=== PATIENT | female | born 1940 | race Caucasian/White ===

== ENCOUNTER 2016-11-29 11:07 | Inpatient (IN) ==
--- NOTE | 2016-11-29 11:39 | Emergency Department Note ---
Arrival - Arrival Chief Complaint: Non-Specific Stated Complaint: low sodium/sent by Dr Shaikh ED Nursing Triage Note: Pt sent by Dr Shaikh's office for ?low sodium that was drawn yesterday. Pt c/o hurting all over and was placed onto a ?"Fluid" med last wk. Mode of Arrival: Ambulatory Limitations: No Limitations Source: Patient Time Seen by Provider: 11/29/16 11:35 - History of Present Illness HPI Narrative: This 76-year-old white female presents on referral from Dr. Plata's office for evaluation of abnormal sodium after being put on a diuretic by Dr. Shaikh for chronic tinnitus. The patient has had no improvement in the tinnitus but has had significant problems with muscle cramping and body aches since beginning this medication. Currently she is in no acute medical distress. Onset (ago): day(s) (Patient presents 2 days post onset of symptom) Allergies/Adverse Reactions: Allergies Allergy/AdvReac Type Severity Reaction Status Date / Time clindamycin Allergy Verified 07/02/16 14:20 meperidine [From Demerol] Allergy INJECTION Verified 07/02/16 14:20 SITE REACTION morphine Allergy Verified 07/02/16 14:20 codeine AdvReac Nausea Verified 07/02/16 14:20 Sulfa (Sulfonamide AdvReac RASH Verified 07/02/16 14:20 Antibiotics) Home Medications: Home Medications Medication Instructions Recorded Confirmed Type Amitriptyline HCl 50 mg PO BEDTIME 07/30/14 07/02/16 History ChlordiazePOX/CLIDINIUM 5-2.5 1 capsule PO ACHS 07/30/14 07/02/16 History [Librax] OXcarbazepine [Oxcarbazepine] 150 mg PO BEDTIME 07/30/14 07/02/16 History cloNIDine TAB [Catapres Tab] 0.1 mg PO BID 07/30/14 07/02/16 History Polyethylene Glycol Powder 17 gm PO BID 02/27/15 07/02/16 History [Miralax] Atorvastatin [Lipitor] 40 mg PO DAILY 07/02/16 07/02/16 History Saccharomyces Boulardii [Probiotic] 1 capsule PO DAILY 07/02/16 07/02/16 History methIMAzole [Methimazole] 10 mg PO QAM 07/02/16 07/02/16 History Cefuroxime Tab [Ceftin] 500 mg PO BID #22 tablet 07/05/16 Rx Ibandronate Sodium [Boniva] 150 mg PO Q30D #0 07/05/16 07/02/16 Rx Pantoprazole Tab [Protonix Tab] 40 mg PO BID #60 tablet 07/05/16 Rx Escitalopram [Lexapro] 20 mg PO QAM 11/29/16 History Methenamine Hippurate [Hiprex] 1 gm PO BID 11/29/16 History Triamterene/Hydrochlorothiazid 1 each PO DAILY 11/29/16 History [Triamterene-Hctz 37.5-25 mg Tb] amLODIPine [Norvasc] 10 mg PO QPM 11/29/16 History Review of System - Review of System 12 point system: reviewed and no additional remarkable complaints except as stated - Review of System Constitutional: Present: as per HPI Musculoskeletal: Present: as per HPI Medical,Surgical,& Family Hx - Medical History Cardio: History of: Cardiac Dysrhythmia, CAD, Hypertension Psychological: History of: Anxiety Disorders, Depression Neurology: No history of: Seizures HEENT: History of: Ear Problem (left ear deafness), Eye Problem Endocrine: History of: Thyroid Disorder No history of: Diabetes Mellitus (IDDM) Respiratory: History of: Asthma (mild per Dr. Pollard H&P), Respiratory Problems (Flu Vac Jan 2015; No Pneum Vac; Wheezing Sched for Bronch 02/28/15) Genitourinary: History of: Recurring Urinary Tract Infections Gastrointestinal: History of: Diverticulitis/ Diverticulosis, GERD, GI Problems (IBS) Musculoskeletal: History of: Osteoporosis Hematology: History of: Anemia No history of: Blood Transfusion Reaction (1958) Reproductive: History of: Breast Cancer (Rt Breast-Followed by Dr. Esquivel 2009, radiaton) Other: History of: Cancer (breast ca), Miscellaneous Medical Problems ( Aspiration of pills Dec 2014 in respiratory tract-For Bronch 02/28/15) No history of: Anesthesia Reactions - Surgical History Cardiac Surgeries: Sugical HX of: Cardiac Catheterization Comment Only: Cardiac Surgery (Dr. Acosta) HEENT Surgeries: Surgical HX of: Eye Surgery (Cataract Surgery Kvng) Abdominal Surgeries: Surgical HX of: Appendectomy (?Per Dr. Pollard H&P), Cholecystectomy, Colonoscopy, EGD Reproductive Surgeries: Surgical HX of;: Breast Surgery (Lumpectomy Rt Breast), Hysterectomy - Family History Family History: Reports;: Family Cancer, Family Diabetes, Family Heart Disease - Social History Smoking Status: Never smoker Exam Physical Examination: GENERAL: Well developed, well nourished elderly white female in no acute distress. HEENT: Normocephalic. No trauma. Moist mucous membranes. EOMI. PERRLA. ENT NML NECK: Supple. No adenopathy. CARDIAC: Regular. No murmurs. Heart rate 75 CHEST: Clear to auscultation. No respiratory distress. O2 sat 100% ABDOMEN: Soft. Nontender. Active bowel sounds. EXTREMITIES: No trauma. Normal ROM. No pedal edema. SKIN: No diaphoresis. No rash. NEURO: Alert. Oriented 3. Motor, sensory, vibratory intact no focal deficits. Vital Signs: Vital Signs Temperature 97.6 F 11/29/16 11:15 Pulse Rate 64 11/29/16 12:35 Respiratory Rate 18 11/29/16 12:35 Blood Pressure 129/71 11/29/16 12:35 O2 Sat by Pulse Oximetry 99 11/29/16 12:35 Course - Reevaluation(s) Reevaluation #1: Advised patient of need for hospitalization. - Consultations Consultation #1: Discussed with hospitalist service who will admit for further evaluation treatment. Results - Labs CBC & BMP: 11/29/16 12:40 11/29/16 12:40 Labs: I reviewed the laboratory and noted the low hematocrit as well as a low sodium. - Impressions EKG sinus rhythm at 65 with normal [place] interval and QRS duration. Normal ST segments. Normal EKG. Disposition Clinical Impression: Hyponatremia, Tenderness Case discussed with: patient Disposition: Still a Patient Condition: Stable Time of Disposition: 14:08
--- NOTE | 2016-11-29 12:52 | EKG Report ---
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
[2016-11-29 12:57] LABS: Basophils % 0.3 % (0.0-0.8); Eosinophils % 0.4 % (0.00-10.9); Hematocrit 32.3 VOL% (35.7-47.0); Hemoglobin 11.9 GM/DL (12.0-16.0); Immature Granulocytes % 0.4 %; Immature Granulocytes Absolute 0.03 #; Lymphocytes # 0.7 10*3/uL (1.4-4.0); Lymphocytes % 9.9 % (21.3-54.2); Mean Corpuscular HGB Conc 36.8 GM/DL (32-36); Mean Corpuscular Hemoglobin 32 PG (27-34); Mean Corpuscular Volume 85.7 FL (87-102); Mean Platelet Volume 10.1 FL (9.6-12.0); Monocytes # 0.6 10*3/uL (0.11-0.8); Monocytes % 7.9 % (1.7-12.7); Neutrophils # 5.9 10*3/uL (1.4-7.4); Neutrophils % 81.1 % (38.7-73.9); Platelet Count 207 T/CUMM (130-400); Red Blood Count 3.77 MC/CUMM (3.8-5.5); Red Cell Distribution Width 12.5 % (9.3-17.3); White Blood Count 7.2 T/CUMM (4-12)
[2016-11-29 13:24] LABS: Alanine Aminotransferase 24 U/L (13-56); Albumin 4.2 G/DL (3.4-5.0); Alkaline Phosphatase 94 U/L (45-117); Aspartate Amino Transferase 17 U/L (0-37); Bilirubin,Total < 0.39 MG/DL (0.2-1.0); Blood Urea Nitrogen 14 MG/DL (7-18); Calcium 9.5 MG/DL (8.5-10.1); Glucose 101 MG/DL (74-106); Osmolality,Calculated 251.5 MOS/KG (273-304); Potassium 4.9 MMOL/L (3.5-5.1); Sodium 125 MMOL/L (136-145); Total Protein 7.7 G/DL (6.4-8.3); Troponin I Only < 0.015 NG/ML (0.00-0.045)
--- NOTE | 2016-11-29 14:42 | Hospitalist History & Physical ---
<Eli Cameron - Last Filed: 11/29/16 14:30> Assessment and Plan - Time spent with patient Time spent with patient: Greater than 30 minutes (1) Hyponatremia Status: Acute Assessment and plan: 11/29/16 - Admit on monitored bed Check urine sodium will repeat a.m. labs Will discuss with Dr kulkarni for further recommendations with care. Current Visit: Yes History of Present Illness Chief complaint: low sodium, muscle cramps History of present illness: Ms. Greenfield is a 76 year old white female w/PMHx of CAD, hypertension, anxiety , depression, left eat deafness, thyroid dz, asthma, GERD, breast CA (radiation) , esophageal stricture (last dilatation June 2016) presented to the ED from Dr Shaikh's office for lab work results of low sodium. She reports muscle cramps in legs and neck with some tenderness. She denies chest pain, shortness of breath, fever, or chills. She reports that Dr Shaikh had placed her on a "fluid " pill related to c/o tinnitus last week on Friday and she had follow up lab work done yesterday, Dr Shaikh's office then called her today to go to the ED. IN ED: LAB Significant: SODIUM 125, troponin negative. EKG: per ED MD: sinus rhythm rate 65 with normal [place] interval ans QRS duration. Normal ST segments. PCP: Dr Paula Sr. Strategic Sourcing Manager: Dr Acosta GI: Dr Garrido After discussion with Dr Wiggins in the ED and Dr Kulkarni with Hospitalist Services, it was agreed to admit patient for further evaluation of low sodium and muscle cramping. Home medications to be reviewed and reconciliation to follow. Home Medications Medication Instructions Recorded Confirmed Type Amitriptyline HCl 50 mg PO BEDTIME 07/30/14 11/29/16 History ChlordiazePOX/CLIDINIUM 5-2.5 1 capsule PO ACHS 07/30/14 11/29/16 History [Librax] OXcarbazepine [Oxcarbazepine] 150 mg PO BEDTIME 07/30/14 11/29/16 History cloNIDine TAB [Catapres Tab] 0.1 mg PO BID@0800,2200 07/30/14 11/29/16 History Polyethylene Glycol Powder 17 gm PO BEDTIME 02/27/15 11/29/16 History [Miralax] Atorvastatin [Lipitor] 40 mg PO QAM 07/02/16 11/29/16 History Saccharomyces Boulardii [Probiotic] 1 capsule PO QAM 07/02/16 11/29/16 History Ibandronate Sodium [Boniva] 150 mg PO Q30D #0 07/05/16 11/29/16 Rx Pantoprazole Tab [Protonix Tab] 40 mg PO BID #60 tablet 07/05/16 11/29/16 Rx Escitalopram [Lexapro] 10 mg PO QAM 11/29/16 11/29/16 History Multivitamin [Multivitamins] 1 each PO QAM 11/29/16 11/29/16 History Naproxen Sodium [Naproxen Sodium 220 mg PO Q12H PRN 11/29/16 11/29/16 History Tab] amLODIPine [Norvasc] 5 mg PO QAM 11/29/16 11/29/16 History methIMAzole [Methimazole] 5 mg PO QAM 11/29/16 11/29/16 History Allergies Allergy/AdvReac Type Severity Reaction Status Date / Time clindamycin Allergy Verified 07/02/16 14:20 meperidine [From Demerol] Allergy INJECTION Verified 07/02/16 14:20 SITE REACTION morphine Allergy Verified 07/02/16 14:20 codeine AdvReac Nausea Verified 07/02/16 14:20 Sulfa (Sulfonamide AdvReac RASH Verified 07/02/16 14:20 Antibiotics) Medical,Surgical,& Family Hx - Medical History Cardio: History of: Cardiac Dysrhythmia, CAD, Hypertension Psychological: History of: Anxiety Disorders, Depression Neurology: No history of: Seizures HEENT: History of: Ear Problem (left ear deafness), Eye Problem Endocrine: History of: Thyroid Disorder No history of: Diabetes Mellitus (IDDM) Respiratory: History of: Asthma (mild per Dr. Pollard H&P), Respiratory Problems (Flu Vac Jan 2015; No Pneum Vac; Wheezing Sched for Bronch 02/28/15) Genitourinary: History of: Recurring Urinary Tract Infections Gastrointestinal: History of: Diverticulitis/ Diverticulosis, GERD, GI Problems (IBS) Musculoskeletal: History of: Osteoporosis Hematology: History of: Anemia No history of: Blood Transfusion Reaction (1958) Reproductive: History of: Breast Cancer (Rt Breast-Followed by Dr. Esquivel 2009, radiaton) Other: History of: Cancer (breast ca), Miscellaneous Medical Problems ( Aspiration of pills Dec 2014 in respiratory tract-For Bronch 02/28/15) No history of: Anesthesia Reactions - Surgical History Cardiac Surgeries: Sugical HX of: Cardiac Catheterization Comment Only: Cardiac Surgery (Dr. Acosta) HEENT Surgeries: Surgical HX of: Eye Surgery (Cataract Surgery Kvng) Abdominal Surgeries: Surgical HX of: Appendectomy (?Per Dr. Pollard H&P), Cholecystectomy, Colonoscopy, EGD Reproductive Surgeries: Surgical HX of;: Breast Surgery (Lumpectomy Rt Breast), Hysterectomy - Family History Family History: Reports;: Family Cancer, Family Diabetes, Family Heart Disease - Social History Smoking Status: Never smoker Frequency of Alcohol Use: None Type of Drug Use: None Marital Status: Single Lives With:: Alone Functional capacity: independent ambulation 12 point system: reviewed and no additional remarkable complaints except as stated - Constitutional Constitutional: Absent: chills, fatigue, fever(s), frequent falls - EENT Ears: Present: decreased hearing (left ear deafness) - Cardiovascular Cardiovascular: Absent: chest pain at rest, chest pain with activity, dyspnea, dyspnea on exertion - Respiratory Respiratory: Absent: dyspnea - Gastrointestinal Gastrointestinal: Absent: abdominal pain - Musculoskeletal Musculoskeletal: Present: muscle cramps, other (muscle tenderness) - Neurological Neurological: Absent: abnormal gait, abnormal speech, confusion, dizziness Exam - Constitutional Vitals: Period Temp Pulse Resp BP Sys/Morris Pulse Ox Last 24 Hr 97.6 F-97.6 F 64-75 14-20 126-137/62-71 99-100 General appearance: normal weight, no acute distress - Head Head exam: Present: normal inspection - Eye Eye exam: Present: EOMI Pupils: Present: HATTIE - Neck Neck exam: Present: normal inspection. Absent: thyromegaly - Respiratory Respiratory exam: Present: clear to auscultation bilaterally. Absent: stridor, wheezes - Cardiovascular Cardiovascular exam: Present: regular rate and rhythm - GI/Abdominal GI/Abdominal exam: Present: normal bowel sounds, soft. Absent: rebound - Extremities Exam Extremities exam: Present: normal inspection, full ROM, other (muscle/leg cramps with some tenderness in deep muscles). Absent: edema - Neurological Exam Neurological exam: Present: alert, oriented X3, CN II-XII intact - Psychiatric Psychiatric exam: Present: normal affect, normal mood. Absent: agitated, anxious - Skin Skin exam: Present: normal color, warm, dry Results - Labs CBC & BMP: 11/29/16 12:40 11/29/16 12:40 Lab Results: I have reviewed the past 24 hour labs - EKG EKG results: interpreted by JOJO <David Kulkarni - Last Filed: 11/29/16 15:13> Assessment and Plan (1) Hyponatremia Status: Acute Assessment and plan: Impression: 1. Hyponatremia. This is likely due to diuresis and urinary loss of sodium. However, she is on a couple of agents that could cause syndrome of inappropriate ADH. Will need to evaluate her hyponatremia further. Plan: Check urine and serum osmolality and urine sodium. Base management of hyponatremia on these values. Will need to correct slowly, as she is asymptomatic and therefore the hyponatremia is likely greater than 48 hours old. This note was completed using [employer] voice recognition software. There may be household refrigerator mechanic errors as a result. Current Visit: Yes History of Present Illness History of present illness: Ms. Greenfield is a 76 year old female The patient has a known history of hypertension, and has been on antihypertensives for a while. Over the past several years, she has had a gradual decrease in auditory acuity in the left ear. About a week ago, she had some left-sided tinnitus. She went to the ENT, and was started on an unknown diuretic. She had some lab work performed yesterday, and her sodium was noted to be 124. She was notified to come to the emergency room. She has not had any seizures. There has been no mental status change or any type of confusion. She was admitted here in June of this year with septic shock of unknown source. She is apparently done well since. She has a history of what sounds like hyperthyroidism of relatively new onset. 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 She is also on Lexapro for years. She sees cardiology for a "leaky valve," and also sees GI for what sounds like intermittent esophageal dilation. She does not have any history of kidney disease except for occasional urinary infections. Exam - Constitutional Vitals: Period Temp Pulse Resp BP Sys/Morris Pulse Ox Last 24 Hr 97.6 F-97.6 F 64-75 14-20 126-137/62-71 99-100 Vital signs are noted above. Heart is regular with no murmur or gallop. There is no carotid bruit. Chest is clear with no rales or wheezes. Abdomen is soft without any mass or tenderness. She is awake and alert. Mental status appears normal. Results - Labs CBC & BMP: 11/29/16 12:40 11/29/16 12:40
[2016-11-29] MEDS ORDERED: ChlordiazePOXIDE/CLIDINIUM 5-2.5 MG CAPSULE PO SCH (16:30)
[2016-11-29] MEDS: ENOXAPARIN 40 MG/0.4 ML SYRINGE SUBCUT SCH (17:18)
[2016-11-29] MEDS: SODIUM CHLORIDE 0.9% 1,000 ML IV SCH (17:32)
[2016-11-29 20:54] LABS: Calcium 8.9 MG/DL (8.5-10.1); Osmolality,Calculated 262.7 MOS/KG (273-304)
[2016-11-29] MEDS: AMITRIPTYLINE 50 MG TABLET PO SCH (21:08)
[2016-11-29] MEDS: PANTOPRAZOLE 40 MG TABLET PO SCH (21:08)
[2016-11-29] MEDS: OXcarbazepine 300 MG TABLET PO SCH (21:09)
[2016-11-29] MEDS: POLYETHYLENE GLYCOL POWDER 17 GM PACK PO SCH (21:09)
[2016-11-29] MEDS: cloNIDine 0.1 MG TABLET PO SCH (21:09)
[2016-11-29] MEDS: ChlordiazePOXIDE/CLIDINIUM 5-2.5 MG CAPSULE PO SCH (21:11)
[2016-11-30] MEDS: SODIUM CHLORIDE 0.9% 1,000 ML IV SCH ×3 (03:15→23:36)
[2016-11-30 06:12] LABS: Calcium 8.6 MG/DL (8.5-10.1); Osmolality,Calculated 262.5 MOS/KG (273-304); Potassium 4.6 MMOL/L (3.5-5.1)
[2016-11-30] MEDS: MULTIVITAMIN (CENTRUM) TABLET PO SCH (08:45)
[2016-11-30] MEDS: LACTOBACILLUS RHAMNOSUS GG CAPSULE PO SCH (08:45)
[2016-11-30] MEDS: amLODIPine 5 MG TABLET PO SCH (08:46)
[2016-11-30] MEDS: ATORVASTATIN 40 MG TABLET PO SCH (08:46)
[2016-11-30] MEDS: PANTOPRAZOLE 40 MG TABLET PO SCH ×2 (08:46→21:28)
[2016-11-30] MEDS: methIMAzole 5 MG TABLET PO SCH (08:46)
--- NOTE | 2016-11-30 08:47 | Hospitalist Progress Note ---
Assessment and Plan (1) Hyponatremia Status: Acute Assessment and plan: Her serum sodium is increased from 125 on admission to 132 today. We will continue intravenous sodium chloride 0.9% intravenous infusion. She should be ready for discharge tomorrow morning. Current Visit: Yes Hospitalist: Subjective Interval history: Patient was hospitalized here yesterday with hyponatremia. Her serum sodium on admission was 125. She was begun on treatment with intravenous sodium chloride 0.9% infusion. She is comfortable today with no specific complaints. Her serum sodium has increased to 132. Exam - Constitutional Vitals: Period Temp Pulse Resp BP Sys/Morris Pulse Ox Last 24 Hr 96.9 F-98.1 F 64-75 14-20 110-164/53-103 93-100 General appearance: no acute distress - Head Head exam: Present: normal inspection - Neck Neck exam: Present: normal inspection - Respiratory Respiratory exam: Present: clear to auscultation bilaterally - Cardiovascular Cardiovascular exam: Present: regular rate and rhythm - GI/Abdominal GI/Abdominal exam: Present: normal bowel sounds, soft, other (Nontender with no palpable masses or hepatosplenomegaly.) - Extremities Exam Extremities exam: Present: normal inspection - Neurological Exam Neurological exam: Present: alert, oriented X3 - Skin Skin exam: Present: normal color, warm, intact Results - Labs CBC & BMP: 11/29/16 12:40 11/30/16 05:03
[2016-11-30] MEDS: cloNIDine 0.1 MG TABLET PO SCH ×2 (08:50→21:27)
[2016-11-30] MEDS: ChlordiazePOXIDE/CLIDINIUM 5-2.5 MG CAPSULE PO SCH ×3 (08:50→21:29)
[2016-11-30] MEDS ORDERED: IBANDRONATE SODIUM 150 MG PO SCH (09:00)
[2016-11-30] MEDS ORDERED: NAPROXEN 250 MG TABLET PO PRN (09:00)
[2016-11-30] MEDS: ESCITALOPRAM 10 MG TABLET PO SCH (09:27)
[2016-11-30] MEDS: DOCUSATE SODIUM 100 MG CAPSULE PO SCH ×2 (14:09→21:27)
[2016-11-30] MEDS: ENOXAPARIN 40 MG/0.4 ML SYRINGE SUBCUT SCH (16:12)
[2016-11-30] MEDS: OXcarbazepine 300 MG TABLET PO SCH (21:27)
[2016-11-30] MEDS: AMITRIPTYLINE 50 MG TABLET PO SCH (21:28)
[2016-11-30] MEDS: POLYETHYLENE GLYCOL POWDER 17 GM PACK PO SCH (21:29)
[2016-12-01 05:13] LABS: Calcium 8.5 MG/DL (8.5-10.1); Osmolality,Calculated 273.7 MOS/KG (273-304); Potassium 4.4 MMOL/L (3.5-5.1)
[2016-12-01 07:42] VITALS: BP 123/63
[2016-12-01] MEDS: ChlordiazePOXIDE/CLIDINIUM 5-2.5 MG CAPSULE PO SCH (08:32)
[2016-12-01] MEDS: MULTIVITAMIN (CENTRUM) TABLET PO SCH (08:32)
[2016-12-01] MEDS: methIMAzole 5 MG TABLET PO SCH (08:32)
[2016-12-01] MEDS: PANTOPRAZOLE 40 MG TABLET PO SCH (08:33)
[2016-12-01] MEDS: LACTOBACILLUS RHAMNOSUS GG CAPSULE PO SCH (08:33)
[2016-12-01] MEDS: DOCUSATE SODIUM 100 MG CAPSULE PO SCH (08:33)
[2016-12-01] MEDS: amLODIPine 5 MG TABLET PO SCH (08:34)
[2016-12-01] MEDS: cloNIDine 0.1 MG TABLET PO SCH (08:34)
[2016-12-01] MEDS: ATORVASTATIN 40 MG TABLET PO SCH (08:34)
[2016-12-01] MEDS: ESCITALOPRAM 10 MG TABLET PO SCH (08:34)
--- NOTE | 2016-12-01 08:51 | Discharge Summary ---
Hospital Course - Hospital Course Hospital Course: Ms. Greenfield is a 76 year old white female w/PMHx of CAD, hypertension, anxiety , depression, left eat deafness, thyroid dz, asthma, GERD, breast CA (radiation) , esophageal stricture (last dilatation June 2016) presented to the ED from Dr Shaikh's office for lab work results of low sodium. She reports muscle cramps in legs and neck with some tenderness. She denies chest pain, shortness of breath, fever, or chills. She reports that Dr Shaikh had placed her on a "fluid " pill related to c/o tinnitus last week on Friday and she had follow up lab work done yesterday, Dr Shaikh's office then called her today to go to the ED. IN ED: LAB Significant: SODIUM 125, troponin negative. EKG: per ED MD: sinus rhythm rate 65 with normal [place] interval ans QRS duration. Normal ST segments. Patient was treated in the hospital with intravenous sodium chloride 0.9% infusion. On the day of discharge laboratory testing demonstrated her serum sodium increased to 138. The time of discharge she was comfortable with no complaints. Diagnosis - Discharge Diagnosis (1) Hyponatremia Status: Acute Discharge Plan - Discharge Data Disposition: Disch To Home/Self Care Condition at Discharge: Stable Discharge Diet: advance to your usual diet Activity: resume usual activities as tolerated - Discharge Medications Continue cloNIDine TAB [Catapres Tab] 0.1 mg PO BID@0800,2200 OXcarbazepine [Oxcarbazepine] 150 mg PO BEDTIME ChlordiazePOX/CLIDINIUM 5-2.5 [Librax] 1 capsule PO ACHS Amitriptyline HCl 50 mg PO BEDTIME Polyethylene Glycol Powder [Miralax] 17 gm PO BEDTIME Pantoprazole Tab [Protonix Tab] 40 mg PO BID #60 tablet Ibandronate Sodium [Boniva] 150 mg PO Q30D #0 amLODIPine [Norvasc] 5 mg PO QAM methIMAzole [Methimazole] 5 mg PO QAM Naproxen Sodium [Naproxen Sodium Tab] 220 mg PO Q12H PRN PRN Reason: Pain Multivitamin [Multivitamins] 1 each PO QAM Atorvastatin [Lipitor] 40 mg PO QAM Saccharomyces Boulardii [Probiotic] 1 capsule PO QAM Escitalopram [Lexapro] 10 mg PO QAM - Follow Up or Referral - Forms/Instructions Exam - Constitutional Vitals: Period Temp Pulse Resp BP Sys/Morris Pulse Ox Last 24 Hr 96.5 F-98.2 F 57-78 16-20 101-132/54-63 94-99 Discharge Results Labs on day of discharge: Labs from last 24 hours 12/01/16 03:05 Sodium 138 Potassium 4.4 Chloride 106 Carbon Dioxide 28 Anion Gap 8.4 BUN 12 Creatinine 0.70 GFR Calculation 87 BUN/Creatinine Ratio 17.00 Glucose 88 Calculated Osmolality 273.7 Calcium 8.5 DS: Provider Date of admission: 11/29/16 14:07 Primary care physician: Ramos Paula MD Attending physician on admission: David Ramirez MD Consults: 11/29/16 17:04 Consult to Dietitian [CONS] Routine Reason for Dietitian: Dietary Consult Consult to Pastoral Services [CONS] Routine Comment: Pastoral Screen: Request Dairy Scientist Visit Pastoral Screen Source of Request: Patient Discharging clinician: Josiah Mcdermott
== END 2016-12-01 09:51 | disposition home or self-care (01) | DRG 641 ==
LOC: N.ED 11:07 → N.EDINP 14:07 → SUATTDRO 14:07 → N.2E 16:21
PROVIDERS: ADMIT Internal Medicine Geriatric Medicine